=== PATIENT | female | born 1985 | race Caucasian/White ===

== ENCOUNTER 2016-10-14 14:50 | Emergency (ER) | payer OTHER ==
--- NOTE | 2016-10-14 15:32 | ED CLINICAL REPORT ---
Clinical Report - Physicians/Mid Levels [facility] [address] [place] [address] 10/14/2016 14:51 [id number] Time Seen: 15:10 Oct 14 2016. Arrived- By private vehicle. Historian- patient. HISTORY OF PRESENT ILLNESS Chief Complaint: DENTAL PAIN. This started yesterday and is still present. Pain described as mild. No mouth sores, nasal discharge or congestion or ear pain. She has had toothache. (Patient reports filling recently fell out of her tooth, 7 days prior. Patient has had new onset of pain over the last few days. No fevers. She denies any difficulty swallowing.). REVIEW OF SYSTEMS No cough, difficulty breathing, diarrhea, headache or skin rash. All systems otherwise negative, except as recorded above. PAST HISTORY Problems: Strep Throat. Abscess. Dental Caries. Immunizations. Dental Pain. Gastroesophageal Reflux Disease. Back Pain. Depression. Abdominal Pain. LNMP - Last Normal Menstrual Period. None. Additional Surgeries: None. Medications: Zoloft 150 mg daily. Allergies: No Known Drug Allergy. SOCIAL HISTORY Alcohol use; consumes beer occasionally. History of drug use: marijuana. ADDITIONAL NOTES The nursing notes have been reviewed. PHYSICAL EXAM Vital Signs: 10/14/2016 14:57 BP: 110/82. HR: 75. RR: 18. O2 saturation: 99%. Temp: 98.8 F. Pain level now: 710. Appearance: Alert. No acute distress. Head: Normal external inspection. ENT: Extensive dental decay with gingival tenderness, induration and swelling (generalized, extensive to upper right molar, with multiple fillings, gumline erythema, no palpable mass). Dental tenderness. Nose normal. Pharynx normal. Lips normal. Uvula midline. No peritonsillar mass, drooling or trismus. Neck: Trachea midline. No adenopathy. No meningeal signs. CVS: Normal heart rate and rhythm. Heart sounds normal. Respiratory: No respiratory distress. Breath sounds normal. Abdomen: Soft. Neuro: Oriented X 3. PROGRESS AND PROCEDURES Course of Care: Patient here with no signs of uvula deviation. Afebrile. Stable. No trismus. No signs of otitis. Patient will follow-up with a dentist. Stable otherwise. Patient is stable. Patient/family counseled. Disposition: Discharged. CLINICAL IMPRESSION Moderate dental pain. INSTRUCTIONS Drink plenty of fluids. Prescription Medications: Hydrocodone/APAP 5mg / 325mg: take 1 orally every 6 hours as needed for pain. Dispense five (5). No refill. Amoxicillin 500 mg tablets: Take 1 orally every 8 hours for 10 days. Dispense thirty (30). No refills. Ibuprofen 800 mg tablets: take 1 tablet orally every 8 hours for 3 days, as needed for pain. Dispense ten (10). No refill. Follow-up: Follow up with a specialist in one week. (Electronically signed by Jeanna Kennedy P.A.-C 10/14/2016 16:05)
--- NOTE | 2016-10-14 15:32 | ED NURSING NOTES ---
Clinical Report - Nurses [facility] [address] [place] [address] 10/14/2016 14:51 Patient: ELKIN ROSS TRIAGE Triage time 14:57. Acuity: LEVEL 4. Chief Complaint: RIGHT UPPER TOOTHACHE and SWELLING OF JAW / FACE. --15:01 Ena Smallwood R.N. 14:57 10/14/16. BP: 110/82. HR: 75. RR: 18. O2 saturation: 99%. Temp: 98.8 F. Pain level now: 01/25. --15:01 Ena Smallwood R.N. Weight: 86.1 kg stated. Height/Length: 63 inches Per Patient. BMI: 33.6. --14:59 Ena Smallwood R.N. Medications Zoloft 150 mg daily. --14:58 Ena Smallwood R.N. Allergies No Known Drug Allergy. --14:58 Ena Smallwood R.N. History Arrived by private vehicle. Historian: patient. Accompanied by friend. This started today. Onset. (filling came out last wednesday). She has no dental appointment scheduled. 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 PAST MEDICAL HX: Immunizations: up-to-date. SOCIAL HX: Occasional alcohol use. History of occasional drug use: marijuana. No infectious disease exposure. --15:01 Ena Smallwood R.N. Interventions ID band on patient. To treatment room. --15:01 Ena Smallwood R.N. PHYSICAL ASSESSMENT GENERAL / NEURO / PSYCH: Alert. Oriented X 4. Appears in no acute distress. HEENT: Facial swelling present. Pupils equal, round and reactive to light. Dental tenderness. Dental decay. RESPIRATORY: Respirations not labored. SKIN: Skin is warm and dry. --15:10 Ena Smallwood R.N. NURSING PROGRESS NOTES Reassurance given. Call light placed in reach. Bed placed in lowest position. Patient waiting for evaluation. --15:10 Ena Smallwood R.N. DISPOSITION / DISCHARGE Departure time: 15:37. Condition at departure: unchanged and stable. Reviewed warnings. Reviewed medication(s) side effects information. Prescription(s) given to the patient. Reviewed referral to a dentist. Patient verbalized understanding. Written instructions provided in [place]. The patient was discharged by the physician medical services assistant. She was discharged home and accompanied by self propelled hot mix roller operator. She left the Emergency Department ambulatory and via private vehicle. Lip And Gate Builder driving. --15:38 Ena Smallwood R.N. 15:37 10/14/16. BP: 110/82. HR: 75. RR: 18. O2 saturation: 99%. Temp: 98.8 F. Pain level now: 01/25. --15:38 Ena Smallwood R.N. Locked/Released at 10/14/2016 15:38 by Ena Smallwood R.N.
--- NOTE | 2016-10-14 15:32 | ED CLINICAL REPORT ---
Clinical Report - Physicians/Mid Levels [facility] [address] [place] [address] 10/14/2016 14:51 [id number] Time Seen: 15:10 Oct 14 2016. Arrived- By private vehicle. Historian- patient. HISTORY OF PRESENT ILLNESS Chief Complaint: DENTAL PAIN. This started yesterday and is still present. Pain described as mild. No mouth sores, nasal discharge or congestion or ear pain. She has had toothache. (Patient reports filling recently fell out of her tooth, 7 days prior. Patient has had new onset of pain over the last few days. No fevers. She denies any difficulty swallowing.). REVIEW OF SYSTEMS No cough, difficulty breathing, diarrhea, headache or skin rash. All systems otherwise negative, except as recorded above. PAST HISTORY Problems: Strep Throat. Abscess. Dental Caries. Immunizations. Dental Pain. Gastroesophageal Reflux Disease. Back Pain. Depression. Abdominal Pain. LNMP - Last Normal Menstrual Period. None. Additional Surgeries: None. Medications: Zoloft 150 mg daily. Allergies: No Known Drug Allergy. SOCIAL HISTORY Alcohol use; consumes beer occasionally. History of drug use: marijuana. ADDITIONAL NOTES The nursing notes have been reviewed. PHYSICAL EXAM Vital Signs: 10/14/2016 14:57 BP: 110/82. HR: 75. RR: 18. O2 saturation: 99%. Temp: 98.8 F. Pain level now: 710. Appearance: Alert. No acute distress. Head: Normal external inspection. ENT: Extensive dental decay with gingival tenderness, induration and swelling (generalized, extensive to upper right molar, with multiple fillings, gumline erythema, no palpable mass). Dental tenderness. Nose normal. Pharynx normal. Lips normal. Uvula midline. No peritonsillar mass, drooling or trismus. Neck: Trachea midline. No adenopathy. No meningeal signs. CVS: Normal heart rate and rhythm. Heart sounds normal. Respiratory: No respiratory distress. Breath sounds normal. Abdomen: Soft. Neuro: Oriented X 3. PROGRESS AND PROCEDURES Course of Care: Patient here with no signs of uvula deviation. Afebrile. Stable. No trismus. No signs of otitis. Patient will follow-up with a dentist. Stable otherwise. Patient is stable. Patient/family counseled. Disposition: Discharged. CLINICAL IMPRESSION Moderate dental pain. INSTRUCTIONS Drink plenty of fluids. Prescription Medications: Hydrocodone/APAP 5mg / 325mg: take 1 orally every 6 hours as needed for pain. Dispense five (5). No refill. Amoxicillin 500 mg tablets: Take 1 orally every 8 hours for 10 days. Dispense thirty (30). No refills. Ibuprofen 800 mg tablets: take 1 tablet orally every 8 hours for 3 days, as needed for pain. Dispense ten (10). No refill. Follow-up: Follow up with a specialist in one week. (Electronically signed by Jeanna Kennedy P.A.-C 10/14/2016 16:05)
--- NOTE | 2016-10-14 15:32 | ED NURSING NOTES ---
Clinical Report - Nurses [facility] [address] [place] [address] 10/14/2016 14:51 Patient: ELKIN ROSS TRIAGE Triage time 14:57. Acuity: LEVEL 4. Chief Complaint: RIGHT UPPER TOOTHACHE and SWELLING OF JAW / FACE. --15:01 Ena Smallwood R.N. 14:57 10/14/16. BP: 110/82. HR: 75. RR: 18. O2 saturation: 99%. Temp: 98.8 F. Pain level now: 01/25. --15:01 Ena Smallwood R.N. Weight: 86.1 kg stated. Height/Length: 63 inches Per Patient. BMI: 33.6. --14:59 Ena Smallwood R.N. Medications Zoloft 150 mg daily. --14:58 Ena Smallwood R.N. Allergies No Known Drug Allergy. --14:58 Ena Smallwood R.N. History Arrived by private vehicle. Historian: patient. Accompanied by friend. This started today. Onset. (filling came out last wednesday). She has no dental appointment scheduled. 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 PAST MEDICAL HX: Immunizations: up-to-date. SOCIAL HX: Occasional alcohol use. History of occasional drug use: marijuana. No infectious disease exposure. --15:01 Ena Smallwood R.N. Interventions ID band on patient. To treatment room. --15:01 Ena Smallwood R.N. PHYSICAL ASSESSMENT GENERAL / NEURO / PSYCH: Alert. Oriented X 4. Appears in no acute distress. HEENT: Facial swelling present. Pupils equal, round and reactive to light. Dental tenderness. Dental decay. RESPIRATORY: Respirations not labored. SKIN: Skin is warm and dry. --15:10 Ena Smallwood R.N. NURSING PROGRESS NOTES Reassurance given. Call light placed in reach. Bed placed in lowest position. Patient waiting for evaluation. --15:10 Ena Smallwood R.N. DISPOSITION / DISCHARGE Departure time: 15:37. Condition at departure: unchanged and stable. Reviewed warnings. Reviewed medication(s) side effects information. Prescription(s) given to the patient. Reviewed referral to a dentist. Patient verbalized understanding. Written instructions provided in [place]. The patient was discharged by the physician clinical research assistant. She was discharged home and accompanied by hosiery mater. She left the Emergency Department ambulatory and via private vehicle. Servicenow Administrator driving. --15:38 Ena Smallwood R.N. 15:37 10/14/16. BP: 110/82. HR: 75. RR: 18. O2 saturation: 99%. Temp: 98.8 F. Pain level now: 01/25. --15:38 Ena Smallwood R.N. Locked/Released at 10/14/2016 15:38 by Ena Smallwood R.N.
--- NOTE | 2016-10-14 16:05 | ED MED RECONCILIATION SUMMARY ---
Patient: ELKIN ROSS Medication Reconciliation Report [facility] VisitID: [id number] [place] [address] 31y, F Registration Date/Time: 10/14/2016 Weight: 86.1 kg Height/Length: 63 in. BMI: 33.6 ALLERGIES: No Known Drug Allergy The patient's Home Medications are listed below: THE FOLLOWING MEDICATIONS NEED TO BE RECONCILED: Zoloft 150 mg daily The source(s) of the original Home Medication information: Not obtained. The following Medications were given to the patient in the Emergency Department: None. The following Medications were prescribed to the patient: Hydrocodone/APAP 5mg / 325mg: take 1 orally every 6 hours as needed for pain. Dispense five (5). No refill. -- Jeanna Kennedy, P.A.-C Amoxicillin 500 mg tablets: Take 1 orally every 8 hours for 10 days. Dispense thirty (30). No refills. -- Jeanna Kennedy, P.A.-C Ibuprofen 800 mg tablets: take 1 tablet orally every 8 hours for 3 days, as needed for pain. Dispense ten (10). No refill. -- Jeanna Kennedy, P.A.-C
--- NOTE | 2016-10-14 16:05 | ED MAR SUMMARY ---
..... Medication Administration Record [facility] [address] [place] [place], [place] [id number] Patient: ELKIN ROSS Visit ID: [id number] 31y, F Weight: 86.1 kg Height/Length: 63 in BMI: 33.6 ALLERGIES: No Known Drug Allergy
--- NOTE | 2016-10-14 16:05 | ED MED RECONCILIATION SUMMARY ---
Patient: ELKIN ROSS Medication Reconciliation Report [facility] VisitID: [id number] [place] [address] 31y, F Registration Date/Time: 10/14/2016 Weight: 86.1 kg Height/Length: 63 in. BMI: 33.6 ALLERGIES: No Known Drug Allergy The patient's Home Medications are listed below: THE FOLLOWING MEDICATIONS NEED TO BE RECONCILED: Zoloft 150 mg daily The source(s) of the original Home Medication information: Not obtained. The following Medications were given to the patient in the Emergency Department: None. The following Medications were prescribed to the patient: Hydrocodone/APAP 5mg / 325mg: take 1 orally every 6 hours as needed for pain. Dispense five (5). No refill. -- Jeanna Kennedy, P.A.-C Amoxicillin 500 mg tablets: Take 1 orally every 8 hours for 10 days. Dispense thirty (30). No refills. -- Jeanna Kennedy, P.A.-C Ibuprofen 800 mg tablets: take 1 tablet orally every 8 hours for 3 days, as needed for pain. Dispense ten (10). No refill. -- Jeanna Kennedy, P.A.-C
--- NOTE | 2016-10-14 16:05 | ED DISCHARGE INSTRUCTIONS ---
Patient: ELKIN ROSS General Instructions [facility] VisitID: [id number] [place] [address] 31y, F Registration Date/Time: 10/14/2016 Moderate dental pain. INSTRUCTIONS Drink plenty of fluids. Prescription Medications: Hydrocodone/APAP 5mg / 325mg: take 1 orally every 6 hours as needed for pain. Dispense five (5). No refill. Amoxicillin 500 mg tablets: Take 1 orally every 8 hours for 10 days. Dispense thirty (30). No refills. Ibuprofen 800 mg tablets: take 1 tablet orally every 8 hours for 3 days, as needed for pain. Dispense ten (10). No refill. Follow-up: Follow up with a specialist in one week. ADDITIONAL INFORMATION Dental Pain A crack or cavity in the tooth, which exposes the sensitive inner area of the tooth can cause tooth pain. An infection in the gum or the root of the tooth can cause pain and swelling. The pain is often made worse by drinking hot or cold fluids, or biting on hard foods. Pain may spread from the tooth to the ear or jaw on the same side. Home Care: Avoid hot and cold foods and liquids since your tooth may be sensitive to temperature changes. If your tooth is chipped or cracked, or if there is a large open cavity, apply OIL OF CLOVES (available [id number]-exbufwq in drug stores) directly to the tooth to reduce pain. Some pharmacies carry an vsbl-ure-avdnwim "toothache kit." This contains a paste, which can be applied over the exposed tooth to decrease sensitivity. A cold pack on your jaw over the sore area may help reduce pain. You may use acetaminophen (Tylenol) or ibuprofen (Motrin, Advil) to control pain, unless another medicine was prescribed. [ NOTE: If you have chronic liver or kidney disease or ever had a stomach ulcer or GI bleeding, talk with your doctor before using these medicines.] If you have signs of an infection, an antibiotic will be given. Take it as directed. Follow-Up as directed with a dentist. Your pain may go away with the treatment given. However, only a dentist can fully evaluate and treat the cause and prevent the pain from coming back again. TOOTHACHE IS A SIGN OF DISEASE IN YOUR TOOTH AND SHOULD BE EXAMINED AND TREATED BY A DENTIST. Get Prompt Medical Attention if any of the following occur: Your face becomes swollen or red Pain worsens or spreads to the neck Fever over 100.4 F (38.0 C) Unusual drowsiness; headache or stiff neck; weakness or fainting Pus drains from the tooth Difficulty swallowing or breathing Hydrocodone Bitartrate, Acetaminophen Oral tablet What is this medicine? ACETAMINOPHEN; HYDROCODONE (a set a LAUREEN jennifer fen; terrance droe KOE done) is a pain reliever. It is used to treat mild to moderate pain. How should I use this medicine? Take this medicine by mouth. Swallow it with a full glass of water. Follow the directions on the prescription label. If the medicine upsets your stomach, take the medicine with food or milk. Do not take more than you are told to take. Talk to your toppiece chopper regarding the use of this medicine in children. This medicine is not approved for use in children. What side effects may I notice from receiving this medicine? Side effects that you should report to your doctor or health home care and home health aides teacher as soon as possible: allergic reactions like skin rash, itching or hives, swelling of the face, lips, or tongue breathing problems confusion feeling faint or lightheaded, falls stomach pain yellowing of the eyes or skin Side effects that usually do not require medical attention (report to your doctor or health home care and home health aides teacher if they continue or are bothersome): nausea, vomiting stomach upset What may interact with this medicine? alcohol antihistamines isoniazid medicines for depression, anxiety, or psychotic disturbances medicines for sleep muscle relaxants naltrexone narcotic medicines (opiates) for pain phenobarbital ritonavir tramadol What if I miss a dose? If you miss a dose, take it as soon as you can. If it is almost time for your next dose, take only that dose. Do not take double or extra doses. Where should I keep my medicine? Keep out of the reach of children. This medicine can be abused. Keep your medicine in a safe place to protect it from theft. Do not share this medicine with anyone. Selling or giving away this medicine is dangerous and against the law. Store at room temperature between 15 and 30 degrees C (59 and 86 degrees F). Protect from light. Keep container tightly closed. Throw away any unused medicine after the expiration date. Discard unused medicine and used packaging carefully. Pets and children can be harmed if they find used or lost packages. What should I tell my health care provider before I take this medicine? They need to know if you have any of these conditions: brain tumor Crohn's disease, inflammatory bowel disease, or ulcerative colitis drink more than 3 alcohol-containing drinks per day drug abuse or addiction head injury heart or circulation problems kidney disease or problems going to the bathroom liver disease lung disease, asthma, or breathing problems an unusual or allergic reaction to acetaminophen, hydrocodone, other opioid analgesics, other medicines, foods, dyes, or preservatives or trying to get breast-feeding What should I watch for while using this medicine? Tell your doctor or health home care and home health aides teacher if your pain does not go away, if it gets worse, or if you have new or a different type of pain. You may develop tolerance to the medicine. Tolerance means that you will need a higher dose of the medicine for pain relief. Tolerance is normal and is expected if you take the medicine for a long time. Do not suddenly stop taking your medicine because you may develop a severe reaction. Your body becomes used to the medicine. This does NOT mean you are addicted. Addiction is a behavior related to getting and using a drug for a non-medical reason. If you have pain, you have a medical reason to take pain medicine. Your doctor will tell you how much medicine to take. If your doctor wants you to stop the medicine, the dose will be slowly lowered over time to avoid any side effects. You may get drowsy or dizzy when you first start taking the medicine or change doses. Do not drive, use machinery, or do anything that may be dangerous until you know how the medicine affects you. Stand or sit up slowly. There are different types of narcotic medicines (opiates) for pain. If you take more than one type at the same time, you may have more side effects. Give your health care provider a list of all medicines you use. Your doctor will tell you how much medicine to take. Do not take more medicine than directed. Call emergency for help if you have problems breathing. The medicine will cause constipation. Try to have a bowel movement at least every 2 to 3 days. If you do not have a bowel movement for 3 days, call your doctor or health home care and home health aides teacher. Too much acetaminophen can be very dangerous. Do not take Tylenol (acetaminophen) or medicines that contain acetaminophen with this medicine. Many non-prescription medicines contain acetaminophen. Always read the labels carefully. You have been given the following additional information: Dental Pain Hydrocodone Bitartrate, Acetaminophen Oral tablet (Electronically signed by Jeanna Kennedy P.A.-C 10/14/2016 16:05)
--- NOTE | 2016-10-14 16:05 | ED DISCHARGE INSTRUCTIONS ---
Patient: ELKIN ROSS General Instructions [facility] VisitID: [id number] [place] [address] 31y, F Registration Date/Time: 10/14/2016 Moderate dental pain. INSTRUCTIONS Drink plenty of fluids. Prescription Medications: Hydrocodone/APAP 5mg / 325mg: take 1 orally every 6 hours as needed for pain. Dispense five (5). No refill. Amoxicillin 500 mg tablets: Take 1 orally every 8 hours for 10 days. Dispense thirty (30). No refills. Ibuprofen 800 mg tablets: take 1 tablet orally every 8 hours for 3 days, as needed for pain. Dispense ten (10). No refill. Follow-up: Follow up with a specialist in one week. ADDITIONAL INFORMATION Dental Pain A crack or cavity in the tooth, which exposes the sensitive inner area of the tooth can cause tooth pain. An infection in the gum or the root of the tooth can cause pain and swelling. The pain is often made worse by drinking hot or cold fluids, or biting on hard foods. Pain may spread from the tooth to the ear or jaw on the same side. Home Care: Avoid hot and cold foods and liquids since your tooth may be sensitive to temperature changes. If your tooth is chipped or cracked, or if there is a large open cavity, apply OIL OF CLOVES (available lhbi-spo-rrsoxdw in drug stores) directly to the tooth to reduce pain. Some pharmacies carry an oscy-ayb-tigwlpl "toothache kit." This contains a paste, which can be applied over the exposed tooth to decrease sensitivity. A cold pack on your jaw over the sore area may help reduce pain. You may use acetaminophen (Tylenol) or ibuprofen (Motrin, Advil) to control pain, unless another medicine was prescribed. [ NOTE: If you have chronic liver or kidney disease or ever had a stomach ulcer or GI bleeding, talk with your doctor before using these medicines.] If you have signs of an infection, an antibiotic will be given. Take it as directed. Follow-Up as directed with a dentist. Your pain may go away with the treatment given. However, only a dentist can fully evaluate and treat the cause and prevent the pain from coming back again. TOOTHACHE IS A SIGN OF DISEASE IN YOUR TOOTH AND SHOULD BE EXAMINED AND TREATED BY A DENTIST. Get Prompt Medical Attention if any of the following occur: Your face becomes swollen or red Pain worsens or spreads to the neck Fever over 100.4 F (38.0 C) Unusual drowsiness; headache or stiff neck; weakness or fainting Pus drains from the tooth Difficulty swallowing or breathing Hydrocodone Bitartrate, Acetaminophen Oral tablet What is this medicine? ACETAMINOPHEN; HYDROCODONE (a set a LAUREEN jennifer fen; terrance droe KOE done) is a pain reliever. It is used to treat mild to moderate pain. How should I use this medicine? Take this medicine by mouth. Swallow it with a full glass of water. Follow the directions on the prescription label. If the medicine upsets your stomach, take the medicine with food or milk. Do not take more than you are told to take. Talk to your adjunct instructor regarding the use of this medicine in children. This medicine is not approved for use in children. What side effects may I notice from receiving this medicine? Side effects that you should report to your doctor or health child care nurse as soon as possible: allergic reactions like skin rash, itching or hives, swelling of the face, lips, or tongue breathing problems confusion feeling faint or lightheaded, falls stomach pain yellowing of the eyes or skin Side effects that usually do not require medical attention (report to your doctor or health child care nurse if they continue or are bothersome): nausea, vomiting stomach upset What may interact with this medicine? alcohol antihistamines isoniazid medicines for depression, anxiety, or psychotic disturbances medicines for sleep muscle relaxants naltrexone narcotic medicines (opiates) for pain phenobarbital ritonavir tramadol What if I miss a dose? If you miss a dose, take it as soon as you can. If it is almost time for your next dose, take only that dose. Do not take double or extra doses. Where should I keep my medicine? Keep out of the reach of children. This medicine can be abused. Keep your medicine in a safe place to protect it from theft. Do not share this medicine with anyone. Selling or giving away this medicine is dangerous and against the law. Store at room temperature between 15 and 30 degrees C (59 and 86 degrees F). Protect from light. Keep container tightly closed. Throw away any unused medicine after the expiration date. Discard unused medicine and used packaging carefully. Pets and children can be harmed if they find used or lost packages. What should I tell my health care provider before I take this medicine? They need to know if you have any of these conditions: brain tumor Crohn's disease, inflammatory bowel disease, or ulcerative colitis drink more than 3 alcohol-containing drinks per day drug abuse or addiction head injury heart or circulation problems kidney disease or problems going to the bathroom liver disease lung disease, asthma, or breathing problems an unusual or allergic reaction to acetaminophen, hydrocodone, other opioid analgesics, other medicines, foods, dyes, or preservatives or trying to get breast-feeding What should I watch for while using this medicine? Tell your doctor or health child care nurse if your pain does not go away, if it gets worse, or if you have new or a different type of pain. You may develop tolerance to the medicine. Tolerance means that you will need a higher dose of the medicine for pain relief. Tolerance is normal and is expected if you take the medicine for a long time. Do not suddenly stop taking your medicine because you may develop a severe reaction. Your body becomes used to the medicine. This does NOT mean you are addicted. Addiction is a behavior related to getting and using a drug for a non-medical reason. If you have pain, you have a medical reason to take pain medicine. Your doctor will tell you how much medicine to take. If your doctor wants you to stop the medicine, the dose will be slowly lowered over time to avoid any side effects. You may get drowsy or dizzy when you first start taking the medicine or change doses. Do not drive, use machinery, or do anything that may be dangerous until you know how the medicine affects you. Stand or sit up slowly. There are different types of narcotic medicines (opiates) for pain. If you take more than one type at the same time, you may have more side effects. Give your health care provider a list of all medicines you use. Your doctor will tell you how much medicine to take. Do not take more medicine than directed. Call emergency for help if you have problems breathing. The medicine will cause constipation. Try to have a bowel movement at least every 2 to 3 days. If you do not have a bowel movement for 3 days, call your doctor or health child care nurse. Too much acetaminophen can be very dangerous. Do not take Tylenol (acetaminophen) or medicines that contain acetaminophen with this medicine. Many non-prescription medicines contain acetaminophen. Always read the labels carefully. You have been given the following additional information: Dental Pain Hydrocodone Bitartrate, Acetaminophen Oral tablet (Electronically signed by Jeanna Kennedy P.A.-C 10/14/2016 16:05)
--- NOTE | 2016-10-14 16:05 | ED MAR SUMMARY ---
..... Medication Administration Record [facility] [address] [place] [place], [place] [id number] Patient: ELKIN ROSS Visit ID: [id number] 31y, F Weight: 86.1 kg Height/Length: 63 in BMI: 33.6 ALLERGIES: No Known Drug Allergy
== END 2016-10-14 15:36 | disposition home or self-care (01) ==
LOC: ED SRH 14:50
DX: K08.89 Other specified disorders of teeth and supporting structures (principal)

== ENCOUNTER 2016-10-15 13:37 | Emergency (ER) | payer OTHER ==
--- NOTE | 2016-10-15 14:43 | ED NURSING NOTES ---
Clinical Report - [place] [address] 10/15/2016 13:38 [id number] TRI[facility] Triage time 13:53. Acuity: LEVEL 3. Chief Complaint: RIGHT UPPER TOOTHACHE and SWELLING OF JAW / FACE. --13:58 Ena Smallwood R.N. 13:53 10/15/16. BP: 120/80. HR: 76. RR: 18. O2 saturation: 99%. Temp: 98.6 F. Pain level now: 12/26. --13:58 Ena Smallwood R.N. Weight: 86.1 kg stated. Height/Length: 63 inches Per Patient. BMI: 33.6. --13:57 Ena Smallwood R.N. Medications Zoloft 150 mg daily. --13:55 Ena Smallwood R.N. Allergies No Known Drug Allergy. --13:55 Ena Smallwood R.N. History Arrived by private vehicle. Historian: patient. Accompanied by friend. Onset. (7 days ago filling fell out of right upper tooth. Swelling and pain began yesterday. Was seen here, given Abx and pain meds. Swelling and pain have increased. Pt. now reports "pus pocket" inside mouth.). SOCIAL HX: Alcohol use; consumes beer occasionally. History of occasional drug use: marijuana. No infectious disease exposure. SELF HARM ASSESSMENT: A self harm assessment was performed. The patient answered "no" to the question "Do you have thoughts of harming or killing yourself?". NUTRITIONAL RISK ASSESSMENT: The nutritional risk assessment revealed no deficiencies. FUNCTIONAL ASSESSMENT: Functional assessment: no impairments noted. LEARNING NEEDS ASSESSMENT: The learning needs assessment revealed no barriers. ABUSE ASSESSMENT: Abuse assessment: Abuse denied by patient. SKIN INTEGRITY ASSESSMENT: Skin integrity risk assessment completed. No skin integrity risk identified. --13:58 Ena Smallwood R.N. Interventions ID band on patient. To waiting room. --13:58 Ena Smallwood R.N. PHYSICAL ASSESSMENT Ambulatory to room. GENERAL / NEURO / PSYCH: Alert. Oriented X 4. Appears in pain. HEENT: Facial swelling present involving the area around the right eye. Pharynx within normal limits. Voice within normal limits. Mouth within normal limits upon inspection. Dental tenderness. ( pt states a filling fell out about one week ago). Mucous membranes are pink. RESPIRATORY: Respirations not labored. CVS: Capillary refill less than 2 seconds. SKIN: Skin is warm and dry. Normal skin turgor. --14:11 Adrian Levi R.N. NURSING PROGRESS NOTES Reassurance given to the patient. Patient identifiers checked. Call light placed in reach. Side rails up x 1. Bed placed in lowest position. Brakes of bed on. Patient ready for evaluation- chart flagged and ED physician notified. --14:12 Adrian Levi R.N. 14:57 10/15/2016 Clindamycin PO Capsules 300 mg given. Allergies verified and confirmed 5 rights. --15:12 Adrian Levi R.N. 14:57 10/15/2016 Hydrocodone-APAP (Hydrocodone-Acetaminophen) PO 5/325 mg Tablets 1 tab given. Allergies verified, confirmed 5 rights and sedative warning given. --15:12 Adrian Levi R.N. DISPOSITION / DISCHARGE 14:50 10/15/16. BP: 116/76. HR: 72. RR: 16. O2 saturation: 99% on room air. Temp: 98.8 F. Pain level now: 5/10. Additional comments: (R) Jaw. --17:52 Adrian Levi R.N. Departure time: 1500. --17:55 Adiran Levi R.N. 15:00. Condition at departure: improved. No learning barriers present. Discharge instructions provided and reviewed with the patient. Reviewed medication(s) (prescription given to pt). Reviewed referral to a dentist and family practice for followup (local dental llist given to pt). Patient verbalized understanding. Written instructions provided in [place]uran. The patient was discharged by the physician podiatry assistant. She was discharged home and accompanied by telecommunication equipment repairer. She left the Emergency Department ambulatory and via private vehicle. Social Services Counselor driving. --17:59 Adrian Levi R.N. Locked/Released at 10/15/2016 18:00 by Adrian Levi R.N.
--- NOTE | 2016-10-15 14:43 | ED ORDER SUMMARY ---
..... Patient: ELKIN ROSS OrderSheet [facility] VisitID: [id number] [place] [address] 31y, F Registration Date/Time: 10/15/2016 ORDER SHEET Weight: 86.1 kg (stated) Allergies: No Known Drug Allergy GENERAL ORDERS: MEDICATION ORDERS: Hydrocodone-APAP PO 5/325 mg (NOW, HIGH ALERT MEDICATION) (14:34 10/15/2016 Pavel Reed) (15:12 Manjit Chen) Clindamycin PO 300 mg (NOW) (14:34 10/15/2016 Pavel Reed) (15:12 Manjit Chen) IV FLUIDS: ORDER SHEET NOTES: [Electronically signed by Adrian Levi R.N. (18:00 10/15/2016)] [Electronically signed by Geo Baptiste Dr. (11:15 10/20/2016)] [Electronically locked/signed by Adrian Levi R.N. (18:00 10/15/2016)]
--- NOTE | 2016-10-15 14:43 | ED ORDER SUMMARY ---
..... Patient: ELKIN ROSS OrderSheet [facility] VisitID: [id number] [place] [address] 31y, F Registration Date/Time: 10/15/2016 ORDER SHEET Weight: 86.1 kg (stated) Allergies: No Known Drug Allergy GENERAL ORDERS: MEDICATION ORDERS: Hydrocodone-APAP PO 5/325 mg (NOW, HIGH ALERT MEDICATION) (14:34 10/15/2016 Pavel Reed) (15:12 Manjit Chen) Clindamycin PO 300 mg (NOW) (14:34 10/15/2016 Pavel Reed) (15:12 Manjit Chen) IV FLUIDS: ORDER SHEET NOTES: [Electronically signed by Adrian Levi R.N. (18:00 10/15/2016)] [Electronically signed by Geo Baptiste Dr. (11:15 10/20/2016)] [Electronically locked/signed by Adrian Levi R.N. (18:00 10/15/2016)]
--- NOTE | 2016-10-15 14:43 | ED CLINICAL REPORT ---
Clinical Report - Physicians/Mid Levels [facility] [address] [place] [address] 10/15/2016 13:38 Patient: ELKIN ROSS Time Seen: 1356. Arrived- By private vehicle. Historian- patient. HISTORY OF PRESENT ILLNESS Chief Complaint: DENTAL PAIN. This started past 4 days and is still present (worsening). It was abrupt in onset and has been constant but is not gone now. Pain described as moderate. The patient has had moderate toothache involving multiple teeth (right upper molar). She has had moderate swelling of the face (right). She has had moderate right-sided facial pain. Similar symptoms previously: Many times. Recent medical care: Not recently seen/assessed. REVIEW OF SYSTEMS No nausea, abdominal pain, difficulty with urination or vomiting. All systems otherwise negative, except as recorded above. PAST HISTORY See nurses notes. tetanus is up to date per patient. SOCIAL HISTORY Never smoker. Occasional alcohol use. History of occasional drug use: marijuana. No recent travel. Is a local resident. ADDITIONAL NOTES The nursing notes have been reviewed. PHYSICAL EXAM Vital Signs: 10/15/2016 13:53 BP: 120/80. HR: 76. RR: 18. O2 saturation: 99%. Temp: 98.6 F. Pain level now: 6/10. Blood pressure normal. Oxygen saturation normal. Appearance: Alert. No acute distress. Head: Normal external inspection. Eyes: Pupils equal, round and reactive to light. Conjunctivae and eyelids normal. ENT: Severe, extensive dental decay. Ears normal. Nose normal. Pharynx normal. Lips normal. Gums normal. No trismus present. Uvula midline. No trismus. (mild right sided facial swelling. no crepitus. mild tenderness. no overlying skin change. no anitha abnormalities. no brawny edema.). Neck: Trachea midline. No adenopathy. CVS: Normal heart rate and rhythm. Heart sounds normal. Pulses normal. Respiratory: No respiratory distress. Breath sounds normal. Chest nontender. Abdomen: Soft and nontender. No organomegaly. Skin: Normal skin color. No rash. Normal skin turgor. PROGRESS AND PROCEDURES Course of Care: The patient is a pleasant 31 yo F presenting for evaluation of dental pain. Patient has been evaluated for retropharyngeal abscess, Ludwigs angina, acute necrotizing ulcerative gingivitis, and peritonsillar abscess. The exam findings are not consistent with any of these etiologies. Evidence for dental pain noted on examination. No concern for airway compromise at this time. Patient appears nontoxic. Vital signs are otherwise unremarkable. Do not feel patient is septic at this time. Patient be managed conservatively at this time with antibiotics and nonsteroidal anti-inflammatory medications as tolerated. Patient be instructed to avoid nonsteroidal anti-inflammatory medications if theyre allergic or have intolerances. Did not feel patient needs to be admitted to the hospital or require further emergency department workup/evaluation. Encouraged patient to follow up with the dentist as soon as possible ideally within the next 2 or 3 days. Has appointment tomorrow which she is encouraged to keep. Reviewed risks and benefits of the procedure. Patient has been reevaluated. No evidence of airway compromise. Patient continues to be nontoxic and in no acute distress. I discussed the patient workup, diagnosis, home care, follow-up, and return precautions. All questions answered. The patient expressed understanding of these instructions and was agreeable to them. CLINICAL IMPRESSION 10/15/2016 13:53 BP: 120/80. HR: 76. RR: 18. O2 saturation: 99%. Temp: 98.6 F. Pain level now: 6/10. Blood pressure normal. Oxygen saturation normal. Dental caries (extensive decay) (acute). right sided facial pain. INSTRUCTIONS Warnings: GENERAL WARNINGS: Return or contact your physician immediately if your condition worsens or changes unexpectedly, if not improving as expected, or if other problems arise. Specifically return if pain, vomiting, bleeding, breathing difficulty or fever. Your Current Medications: CONTINUE TAKING THE FOLLOWING MEDICATIONS: Zoloft 150 mg daily*. Prescription Medications: [place] 5 mg / 325 mg tablets: take 1 orally every 6 hours as needed for pain. Dispense twelve (12). No refill. Substitution is permissible. Clindamycin 300 mg: take 1 capsule orally every 8 hours for 10 days. No refill. (Disp 30 caps) Follow-up: Return to the emergency department as needed. Follow up with your doctor in three days. Reason for referral: recheck today's concerns. Summary of care provided to patient via paper. Screening today revealed the patient's blood pressure to be in the normal range. The patient should follow up with a primary care provider for blood pressure management. Understanding of the discharge instructions verbalized by patient. (Electronically signed by Geo Baptiste Dr. 10/20/2016 11:15)
--- NOTE | 2016-10-15 14:43 | ED NURSING NOTES ---
Clinical Report - Nurses [facility] [place] [address] 10/15/2016 13:38 [id number] Triage time 13:53. Acuity: LEVEL 3. Chief Complaint: RIGHT UPPER TOOTHACHE and SWELLING OF JAW / FACE. --13:58 Ena Smallwood R.N. 13:53 10/15/16. BP: 120/80. HR: 76. RR: 18. O2 saturation: 99%. Temp: 98.6 F. Pain level now: 12/26. --13:58 Ena Smallwood R.N. Weight: 86.1 kg stated. Height/Length: 63 inches Per Patient. BMI: 33.6. --13:57 Ena Smallwood R.N. Medications Zoloft 150 mg daily. --13:55 Ena Smallwood R.N. Allergies No Known Drug Allergy. --13:55 Ena Smallwood R.N. History Arrived by private vehicle. Historian: patient. Accompanied by friend. Onset. (7 days ago filling fell out of right upper tooth. Swelling and pain began yesterday. Was seen here, given Abx and pain meds. Swelling and pain have increased. Pt. now reports "pus pocket" inside mouth.). SOCIAL HX: Alcohol use; consumes beer occasionally. History of occasional drug use: marijuana. No infectious disease exposure. SELF HARM ASSESSMENT: A self harm assessment was performed. The patient answered "no" to the question "Do you have thoughts of harming or killing yourself?". NUTRITIONAL RISK ASSESSMENT: The nutritional risk assessment revealed no deficiencies. FUNCTIONAL ASSESSMENT: Functional assessment: no impairments noted. LEARNING NEEDS ASSESSMENT: The learning needs assessment revealed no barriers. ABUSE ASSESSMENT: Abuse assessment: Abuse denied by patient. SKIN INTEGRITY ASSESSMENT: Skin integrity risk assessment completed. No skin integrity risk identified. --13:58 Ena Smallwood R.N. Interventions ID band on patient. To waiting room. --13:58 Ena Smallwood R.N. PHYSICAL ASSESSMENT Ambulatory to room. GENERAL / NEURO / PSYCH: Alert. Oriented X 4. Appears in pain. HEENT: Facial swelling present involving the area around the right eye. Pharynx within normal limits. Voice within normal limits. Mouth within normal limits upon inspection. Dental tenderness. ( pt states a filling fell out about one week ago). Mucous membranes are pink. RESPIRATORY: Respirations not labored. CVS: Capillary refill less than 2 seconds. SKIN: Skin is warm and dry. Normal skin turgor. --14:11 Adrian Levi R.N. NURSING PROGRESS NOTES Reassurance given to the patient. Patient identifiers checked. Call light placed in reach. Side rails up x 1. Bed placed in lowest position. Brakes of bed on. Patient ready for evaluation- chart flagged and ED physician notified. --14:12 Adrian Levi R.N. 14:57 10/15/2016 Clindamycin PO Capsules 300 mg given. Allergies verified and confirmed 5 rights. --15:12 Adrian Levi R.N. 14:57 10/15/2016 Hydrocodone-APAP (Hydrocodone-Acetaminophen) PO 5/325 mg Tablets 1 tab given. Allergies verified, confirmed 5 rights and sedative warning given. --15:12 Adrian Levi R.N. DISPOSITION / DISCHARGE 14:50 10/15/16. BP: 116/76. HR: 72. RR: 16. O2 saturation: 99% on room air. Temp: 98.8 F. Pain level now: 5/10. Additional comments: (R) Jaw. --17:52 Adrian Levi R.N. Departure time: 1500. --17:55 Adrian Levi R.N. 15:00. Condition at departure: improved. No learning barriers present. Discharge instructions provided and reviewed with the patient. Reviewed medication(s) (prescription given to pt). Reviewed referral to a dentist and family practice for followup (local dental llist given to pt). Patient verbalized understanding. Written instructions provided in Pakistani. The patient was discharged by the physician finance assistant. She was discharged home and accompanied by outboard motor assembler. She left the Emergency Department ambulatory and via private vehicle. Indirect Sales Representative driving. --17:59 Adrian Levi R.N. Locked/Released at 10/15/2016 18:00 by Adrian Levi R.N.
--- NOTE | 2016-10-20 11:15 | ED MAR SUMMARY ---
..... Medication Administration Record [facility] [address] [place] [address] Patient: ELKIN ROSS Visit ID: [id number] 31y, F Weight: 86.1 kg Height/Length: 63 in BMI: 33.6 ALLERGIES: No Known Drug Allergy Given 14:10/15/2016 Adrian Levi, RNathanaelN. Medication Administered: HYDROCODONE-APAP [PO] (HYDROCODONE-ACETAMINOPHEN), Dose: 1 tab 5/325 mg Tablets PO. Medication Ordered: Hydrocodone-APAP PO 5/325 mg (NOW, HIGH ALERT MEDICATION). Given 14:10/15/2016 Adrian Levi, R.N. Medication Administered: CLINDAMYCIN [PO], Dose: 300 mg Capsules PO. Medication Ordered: Clindamycin PO 300 mg (NOW).
--- NOTE | 2016-10-20 11:15 | ED MED RECONCILIATION SUMMARY ---
Patient: ELKIN ROSS Medication Reconciliation Report [facility] VisitID: [id number] [address] [place] [address] 31y, F Registration Date/Time: 10/15/2016 Weight: 86.1 kg Height/Length: 63 in. BMI: 33.6 ALLERGIES: No Known Drug Allergy The patient's Home Medications are listed below: CONTINUE TAKING THE FOLLOWING MEDICATIONS: Zoloft 150 mg daily The source(s) of the original Home Medication information: Not obtained. The following Medications were given to the patient in the Emergency Department: Clindamycin [PO] PO 300 mg, administered: 10/15/2016 2:57:00 PM Hydrocodone-APAP [PO] PO 1 tab, administered: 10/15/2016 2:57:00 PM The following Medications were prescribed to the patient: [place] 5 mg / 325 mg tablets: take 1 orally every 6 hours as needed for pain. Dispense twelve (12). No refill. Substitution is permissible. -- Geo Baptiste Dr. Clindamycin 300 mg: take 1 capsule orally every 8 hours for 10 days. No refill.(Disp 30 caps) -- Geo Baptiste Dr.
--- NOTE | 2016-10-20 11:15 | ED MED RECONCILIATION SUMMARY ---
Patient: ELKIN ROSS Medication Reconciliation Report [facility] VisitID: [id number] [address] [place] [address] 31y, F Registration Date/Time: 10/15/2016 Weight: 86.1 kg Height/Length: 63 in. BMI: 33.6 ALLERGIES: No Known Drug Allergy The patient's Home Medications are listed below: CONTINUE TAKING THE FOLLOWING MEDICATIONS: Zoloft 150 mg daily The source(s) of the original Home Medication information: Not obtained. The following Medications were given to the patient in the Emergency Department: Clindamycin [PO] PO 300 mg, administered: 10/15/2016 2:57:00 PM Hydrocodone-APAP [PO] PO 1 tab, administered: 10/15/2016 2:57:00 PM The following Medications were prescribed to the patient: [place] 5 mg / 325 mg tablets: take 1 orally every 6 hours as needed for pain. Dispense twelve (12). No refill. Substitution is permissible. -- Geo Baptiste Dr. Clindamycin 300 mg: take 1 capsule orally every 8 hours for 10 days. No refill.(Disp 30 caps) -- Geo Baptiste Dr.
--- NOTE | 2016-10-20 11:15 | ED DISCHARGE INSTRUCTIONS ---
Patient: ELKIN ROSS General Instructions [facility] VisitID: [id number] [place] [address] 31y, F Registration Date/Time: 10/15/2016 10/15/2016 13:53 BP: 120/80. HR: 76. RR: 18. O2 saturation: 99%. Temp: 98.6 F. Pain level now: 10. Blood pressure normal. Oxygen saturation normal. Dental caries (extensive decay) (acute). right sided facial pain. INSTRUCTIONS Warnings: GENERAL WARNINGS: Return or contact your physician immediately if your condition worsens or changes unexpectedly, if not improving as expected, or if other problems arise. Specifically return if pain, vomiting, bleeding, breathing difficulty or fever. Your Current Medications: CONTINUE TAKING THE FOLLOWING MEDICATIONS: Zoloft 150 mg daily*. Prescription Medications: [place] 5 mg / 325 mg tablets: take 1 orally every 6 hours as needed for pain. Dispense twelve (12). No refill. Substitution is permissible. Clindamycin 300 mg: take 1 capsule orally every 8 hours for 10 days. No refill. (Disp 30 caps) Follow-up: Return to the emergency department as needed. Follow up with your doctor in three days. Reason for referral: recheck today's concerns. Summary of care provided to patient via paper. Screening today revealed the patient's blood pressure to be in the normal range. The patient should follow up with a primary care provider for blood pressure management. Understanding of the discharge instructions verbalized by patient. ADDITIONAL INFORMATION Dental Cavity A dental cavity is a pit or crater in the enamel surface of the tooth. This exposes the sensitive inner layer of the tooth and causes pain. If untreated, the cavity will get bigger and may cause an infection or abscess in the root of the tooth. An infection in the tooth is a much more serious problem and may require a root canal or removal of the entire tooth. The tooth pain may be made worse by drinking hot or cold fluids. It may spread from the tooth to the ear or jaw on the same side. Home Care: Avoid hot and cold foods, and liquids since your tooth may be sensitive to temperature changes. If your tooth is chipped or cracked, or if there is a large open cavity, apply OIL OF CLOVES (available xgmt-hrf-qcgmykq in drug stores) directly to the tooth to reduce pain. Some pharmacies carry an iwow-vhe-daczouy "toothache kit." This contains oil of cloves and a paste, which can be applied over the exposed tooth to decrease sensitivity. An ice pack on your jaw over the sore area may help to reduce pain. You may use acetaminophen (Tylenol) or ibuprofen (Motrin, Advil) to control pain, unless another pain medicine was prescribed. [ NOTE: If you have liver disease or ever had a stomach ulcer, talk with your doctor before using these medicines.] If you have signs of an infection, an antibiotic will be given. Take it as directed. Follow-Up with your dentist as directed. Although your pain may go away with the treatment given, only a dentist can fully evaluate and treat this problem to prevent further tooth damage. Get Prompt Medical Attention if any of the following occur: Redness or swelling of the face Pain worsens or spreads to the neck Fever over 100.5 F (38C) Unusual drowsiness; headache or stiff neck; weakness or fainting Pus drains from the tooth or gum Difficulty swallowing or breathing Hydrocodone Bitartrate, Acetaminophen Oral tablet What is this medicine? ACETAMINOPHEN; HYDROCODONE (a set a LAUREEN jennifer fen; terrance droe KOE done) is a pain reliever. It is used to treat mild to moderate pain. How should I use this medicine? Take this medicine by mouth. Swallow it with a full glass of water. Follow the directions on the prescription label. If the medicine upsets your stomach, take the medicine with food or milk. Do not take more than you are told to take. Talk to your analytical research chemist regarding the use of this medicine in children. This medicine is not approved for use in children. What side effects may I notice from receiving this medicine? Side effects that you should report to your doctor or health care tech as soon as possible: allergic reactions like skin rash, itching or hives, swelling of the face, lips, or tongue breathing problems confusion feeling faint or lightheaded, falls stomach pain yellowing of the eyes or skin Side effects that usually do not require medical attention (report to your doctor or health care tech if they continue or are bothersome): nausea, vomiting stomach upset What may interact with this medicine? alcohol antihistamines isoniazid medicines for depression, anxiety, or psychotic disturbances medicines for sleep muscle relaxants naltrexone narcotic medicines (opiates) for pain phenobarbital ritonavir tramadol What if I miss a dose? If you miss a dose, take it as soon as you can. If it is almost time for your next dose, take only that dose. Do not take double or extra doses. Where should I keep my medicine? Keep out of the reach of children. This medicine can be abused. Keep your medicine in a safe place to protect it from theft. Do not share this medicine with anyone. Selling or giving away this medicine is dangerous and against the law. Store at room temperature between 15 and 30 degrees C (59 and 86 degrees F). Protect from light. Keep container tightly closed. Throw away any unused medicine after the expiration date. Discard unused medicine and used packaging carefully. Pets and children can be harmed if they find used or lost packages. What should I tell my health care provider before I take this medicine? They need to know if you have any of these conditions: brain tumor Crohn's disease, inflammatory bowel disease, or ulcerative colitis drink more than 3 alcohol-containing drinks per day drug abuse or addiction head injury heart or circulation problems kidney disease or problems going to the bathroom liver disease lung disease, asthma, or breathing problems an unusual or allergic reaction to acetaminophen, hydrocodone, other opioid analgesics, other medicines, foods, dyes, or preservatives or trying to get breast-feeding What should I watch for while using this medicine? Tell your doctor or health care tech if your pain does not go away, if it gets worse, or if you have new or a different type of pain. You may develop tolerance to the medicine. Tolerance means that you will need a higher dose of the medicine for pain relief. Tolerance is normal and is expected if you take the medicine for a long time. Do not suddenly stop taking your medicine because you may develop a severe reaction. Your body becomes used to the medicine. This does NOT mean you are addicted. Addiction is a behavior related to getting and using a drug for a non-medical reason. If you have pain, you have a medical reason to take pain medicine. Your doctor will tell you how much medicine to take. If your doctor wants you to stop the medicine, the dose will be slowly lowered over time to avoid any side effects. You may get drowsy or dizzy when you first start taking the medicine or change doses. Do not drive, use machinery, or do anything that may be dangerous until you know how the medicine affects you. Stand or sit up slowly. There are different types of narcotic medicines (opiates) for pain. If you take more than one type at the same time, you may have more side effects. Give your health care provider a list of all medicines you use. Your doctor will tell you how much medicine to take. Do not take more medicine than directed. Call emergency for help if you have problems breathing. The medicine will cause constipation. Try to have a bowel movement at least every 2 to 3 days. If you do not have a bowel movement for 3 days, call your doctor or health care tech. Too much acetaminophen can be very dangerous. Do not take Tylenol (acetaminophen) or medicines that contain acetaminophen with this medicine. Many non-prescription medicines contain acetaminophen. Always read the labels carefully. Clindamycin Hydrochloride Oral capsule What is this medicine? CLINDAMYCIN (KLIN da EVERTON sin) is a lincosamide antibiotic. It is used to treat certain kinds of bacterial infections. It will not work for colds, flu, or other viral infections. How should I use this medicine? Take this medicine by mouth with a full glass of water. Follow the directions on the prescription label. You can take this medicine with food or on an empty stomach. If the medicine upsets your stomach, take it with food. Take your medicine at regular intervals. Do not take your medicine more often than directed. Take all of your medicine as directed even if you think your are better. Do not skip doses or stop your medicine early. Talk to your analytical research chemist regarding the use of this medicine in children. Special care may be needed. What side effects may I notice from receiving this medicine? Side effects that you should report to your doctor or health care tech as soon as possible: allergic reactions like skin rash, itching or hives, swelling of the face, lips, or tongue dark urine pain on swallowing redness, blistering, peeling or loosening of the skin, including inside the mouth unusual bleeding or bruising unusually weak or tired yellowing of eyes or skin Side effects that usually do not require medical attention (report to your doctor or health care tech if they continue or are bothersome): diarrhea itching in the rectal or genital area joint pain nausea, vomiting stomach pain What may interact with this medicine? chloramphenicol erythromycin kaolin products What if I miss a dose? If you miss a dose, take it as soon as you can. If it is almost time for your next dose, take only that dose. Do not take double or extra doses. Where should I keep my medicine? Keep out of the reach of children. Store at room temperature between 20 and 25 degrees C (68 and 77 degrees F). Throw away any unused medicine after the expiration date. What should I tell my health care provider before I take this medicine? They need to know if you have any of these conditions: kidney disease liver disease stomach problems like colitis an unusual or allergic reaction to clindamycin, lincomycin, or other medicines, foods, dyes like tartrazine or preservatives or trying to get breast-feeding What should I watch for while using this medicine? Tell your doctor or healthcare professional if your symptoms do not start to get better or if they get worse. Do not treat diarrhea with over the counter products. Contact your doctor if you have diarrhea that lasts more than 2 days or if it is severe and watery. You have been given the following additional information: Dental Cavity Hydrocodone Bitartrate, Acetaminophen Oral tablet Clindamycin Hydrochloride Oral capsule (Electronically signed by eGo Baptiste Dr. 10/20/2016 11:15)
--- NOTE | 2016-10-20 11:15 | ED DISCHARGE INSTRUCTIONS ---
Patient: ELKIN ROSS General Instructions [facility] VisitID: [id number] [place] [address] 31y, F Registration Date/Time: 10/15/2016 10/15/2016 13:53 BP: 120/80. HR: 76. RR: 18. O2 saturation: 99%. Temp: 98.6 F. Pain level now: 10. Blood pressure normal. Oxygen saturation normal. Dental caries (extensive decay) (acute). right sided facial pain. INSTRUCTIONS Warnings: GENERAL WARNINGS: Return or contact your physician immediately if your condition worsens or changes unexpectedly, if not improving as expected, or if other problems arise. Specifically return if pain, vomiting, bleeding, breathing difficulty or fever. Your Current Medications: CONTINUE TAKING THE FOLLOWING MEDICATIONS: Zoloft 150 mg daily*. Prescription Medications: [place] 5 mg / 325 mg tablets: take 1 orally every 6 hours as needed for pain. Dispense twelve (12). No refill. Substitution is permissible. Clindamycin 300 mg: take 1 capsule orally every 8 hours for 10 days. No refill. (Disp 30 caps) Follow-up: Return to the emergency department as needed. Follow up with your doctor in three days. Reason for referral: recheck today's concerns. Summary of care provided to patient via paper. Screening today revealed the patient's blood pressure to be in the normal range. The patient should follow up with a primary care provider for blood pressure management. Understanding of the discharge instructions verbalized by patient. ADDITIONAL INFORMATION Dental Cavity A dental cavity is a pit or crater in the enamel surface of the tooth. This exposes the sensitive inner layer of the tooth and causes pain. If untreated, the cavity will get bigger and may cause an infection or abscess in the root of the tooth. An infection in the tooth is a much more serious problem and may require a root canal or removal of the entire tooth. The tooth pain may be made worse by drinking hot or cold fluids. It may spread from the tooth to the ear or jaw on the same side. Home Care: Avoid hot and cold foods, and liquids since your tooth may be sensitive to temperature changes. If your tooth is chipped or cracked, or if there is a large open cavity, apply OIL OF CLOVES (available cioq-vbm-iixtssk in drug stores) directly to the tooth to reduce pain. Some pharmacies carry an ykbp-hlg-uzlopwi "toothache kit." This contains oil of cloves and a paste, which can be applied over the exposed tooth to decrease sensitivity. An ice pack on your jaw over the sore area may help to reduce pain. You may use acetaminophen (Tylenol) or ibuprofen (Motrin, Advil) to control pain, unless another pain medicine was prescribed. [ NOTE: If you have liver disease or ever had a stomach ulcer, talk with your doctor before using these medicines.] If you have signs of an infection, an antibiotic will be given. Take it as directed. Follow-Up with your dentist as directed. Although your pain may go away with the treatment given, only a dentist can fully evaluate and treat this problem to prevent further tooth damage. Get Prompt Medical Attention if any of the following occur: Redness or swelling of the face Pain worsens or spreads to the neck Fever over 100.5 F (38C) Unusual drowsiness; headache or stiff neck; weakness or fainting Pus drains from the tooth or gum Difficulty swallowing or breathing Hydrocodone Bitartrate, Acetaminophen Oral tablet What is this medicine? ACETAMINOPHEN; HYDROCODONE (a set a LAUREEN jennifer fen; terrance droe KOE done) is a pain reliever. It is used to treat mild to moderate pain. How should I use this medicine? Take this medicine by mouth. Swallow it with a full glass of water. Follow the directions on the prescription label. If the medicine upsets your stomach, take the medicine with food or milk. Do not take more than you are told to take. Talk to your electrical plumbing supervisor regarding the use of this medicine in children. This medicine is not approved for use in children. What side effects may I notice from receiving this medicine? Side effects that you should report to your doctor or health menagerie caretaker as soon as possible: allergic reactions like skin rash, itching or hives, swelling of the face, lips, or tongue breathing problems confusion feeling faint or lightheaded, falls stomach pain yellowing of the eyes or skin Side effects that usually do not require medical attention (report to your doctor or health menagerie caretaker if they continue or are bothersome): nausea, vomiting stomach upset What may interact with this medicine? alcohol antihistamines isoniazid medicines for depression, anxiety, or psychotic disturbances medicines for sleep muscle relaxants naltrexone narcotic medicines (opiates) for pain phenobarbital ritonavir tramadol What if I miss a dose? If you miss a dose, take it as soon as you can. If it is almost time for your next dose, take only that dose. Do not take double or extra doses. Where should I keep my medicine? Keep out of the reach of children. This medicine can be abused. Keep your medicine in a safe place to protect it from theft. Do not share this medicine with anyone. Selling or giving away this medicine is dangerous and against the law. Store at room temperature between 15 and 30 degrees C (59 and 86 degrees F). Protect from light. Keep container tightly closed. Throw away any unused medicine after the expiration date. Discard unused medicine and used packaging carefully. Pets and children can be harmed if they find used or lost packages. What should I tell my health care provider before I take this medicine? They need to know if you have any of these conditions: brain tumor Crohn's disease, inflammatory bowel disease, or ulcerative colitis drink more than 3 alcohol-containing drinks per day drug abuse or addiction head injury heart or circulation problems kidney disease or problems going to the bathroom liver disease lung disease, asthma, or breathing problems an unusual or allergic reaction to acetaminophen, hydrocodone, other opioid analgesics, other medicines, foods, dyes, or preservatives or trying to get breast-feeding What should I watch for while using this medicine? Tell your doctor or health menagerie caretaker if your pain does not go away, if it gets worse, or if you have new or a different type of pain. You may develop tolerance to the medicine. Tolerance means that you will need a higher dose of the medicine for pain relief. Tolerance is normal and is expected if you take the medicine for a long time. Do not suddenly stop taking your medicine because you may develop a severe reaction. Your body becomes used to the medicine. This does NOT mean you are addicted. Addiction is a behavior related to getting and using a drug for a non-medical reason. If you have pain, you have a medical reason to take pain medicine. Your doctor will tell you how much medicine to take. If your doctor wants you to stop the medicine, the dose will be slowly lowered over time to avoid any side effects. You may get drowsy or dizzy when you first start taking the medicine or change doses. Do not drive, use machinery, or do anything that may be dangerous until you know how the medicine affects you. Stand or sit up slowly. There are different types of narcotic medicines (opiates) for pain. If you take more than one type at the same time, you may have more side effects. Give your health care provider a list of all medicines you use. Your doctor will tell you how much medicine to take. Do not take more medicine than directed. Call emergency for help if you have problems breathing. The medicine will cause constipation. Try to have a bowel movement at least every 2 to 3 days. If you do not have a bowel movement for 3 days, call your doctor or health menagerie caretaker. Too much acetaminophen can be very dangerous. Do not take Tylenol (acetaminophen) or medicines that contain acetaminophen with this medicine. Many non-prescription medicines contain acetaminophen. Always read the labels carefully. Clindamycin Hydrochloride Oral capsule What is this medicine? CLINDAMYCIN (KLIN da EVERTON sin) is a lincosamide antibiotic. It is used to treat certain kinds of bacterial infections. It will not work for colds, flu, or other viral infections. How should I use this medicine? Take this medicine by mouth with a full glass of water. Follow the directions on the prescription label. You can take this medicine with food or on an empty stomach. If the medicine upsets your stomach, take it with food. Take your medicine at regular intervals. Do not take your medicine more often than directed. Take all of your medicine as directed even if you think your are better. Do not skip doses or stop your medicine early. Talk to your electrical plumbing supervisor regarding the use of this medicine in children. Special care may be needed. What side effects may I notice from receiving this medicine? Side effects that you should report to your doctor or health menagerie caretaker as soon as possible: allergic reactions like skin rash, itching or hives, swelling of the face, lips, or tongue dark urine pain on swallowing redness, blistering, peeling or loosening of the skin, including inside the mouth unusual bleeding or bruising unusually weak or tired yellowing of eyes or skin Side effects that usually do not require medical attention (report to your doctor or health menagerie caretaker if they continue or are bothersome): diarrhea itching in the rectal or genital area joint pain nausea, vomiting stomach pain What may interact with this medicine? chloramphenicol erythromycin kaolin products What if I miss a dose? If you miss a dose, take it as soon as you can. If it is almost time for your next dose, take only that dose. Do not take double or extra doses. Where should I keep my medicine? Keep out of the reach of children. Store at room temperature between 20 and 25 degrees C (68 and 77 degrees F). Throw away any unused medicine after the expiration date. What should I tell my health care provider before I take this medicine? They need to know if you have any of these conditions: kidney disease liver disease stomach problems like colitis an unusual or allergic reaction to clindamycin, lincomycin, or other medicines, foods, dyes like tartrazine or preservatives or trying to get breast-feeding What should I watch for while using this medicine? Tell your doctor or healthcare professional if your symptoms do not start to get better or if they get worse. Do not treat diarrhea with over the counter products. Contact your doctor if you have diarrhea that lasts more than 2 days or if it is severe and watery. You have been given the following additional information: Dental Cavity Hydrocodone Bitartrate, Acetaminophen Oral tablet Clindamycin Hydrochloride Oral capsule (Electronically signed by Geo Baptiste Dr. 10/20/2016 11:15)
--- NOTE | 2016-10-20 11:15 | ED MAR SUMMARY ---
..... Medication Administration Record [facility] [address] [place] [address] Patient: ELKIN ROSS Visit ID: [id number] 31y, F Weight: 86.1 kg Height/Length: 63 in BMI: 33.6 ALLERGIES: No Known Drug Allergy Given 14:10/15/2016 Adrian Levi, RNathanaelN. Medication Administered: HYDROCODONE-APAP [PO] (HYDROCODONE-ACETAMINOPHEN), Dose: 1 tab 5/325 mg Tablets PO. Medication Ordered: Hydrocodone-APAP PO 5/325 mg (NOW, HIGH ALERT MEDICATION). Given 14:10/15/2016 Adrian Levi, R.N. Medication Administered: CLINDAMYCIN [PO], Dose: 300 mg Capsules PO. Medication Ordered: Clindamycin PO 300 mg (NOW).
== END 2016-10-15 15:00 | disposition home or self-care (01) ==
LOC: ED SRH 13:37
DX: K02.9 Dental caries, unspecified (principal)